=== PATIENT | female | born 1960 | race American Indian/Alaskan Native ===

== ENCOUNTER 2018-06-05 19:44 | Emergency (ER) | payer OTHER ==
[2018-06-05 20:01] VITALS: BP 140/80; PULSE 111; RESP 24; TEMP 98.6; O2SAT 100
[2018-06-05] MEDS ORDERED: Lidocaine 2% Inj (20ml) INFIL ONE (20:16)
[2018-06-05] MEDS ORDERED: Lidocaine 2% MPF (5 ml) Inj ONE (20:21)
[2018-06-05] MEDS ORDERED: Bacitracin 500 Units/gm Oint Foilpak UD ONE (20:22)
[2018-06-05] MEDS: Bacitracin 500 Units/gm Oint Foilpak UD TOP ONE (20:40)
--- NOTE | 2018-06-05 20:56 | C.PDOC ---
History Of Present Illness 57 year old female presents to the ED for an evaluation of left thumb laceration sustained this morning at 0900. Reports she accidentally cut finger with razor blade. Denies any other injuries, weakness, numbness or sensory changes. Patient is an RN at [employer]. Time Seen by Provider: 06/05/18 20:03 Chief Complaint (Nursing): Abnormal Skin Integrity History Per: Patient History/Exam Limitations: no limitations Onset/Duration Of Symptoms: Hrs Current Symptoms Are (Timing): Still Present Location Of Injury: Left: Hand (laceration to left thumb ) Quality Of Symptoms: Painful Past Medical History Reviewed: Historical Data, Nursing Documentation, Vital Signs Vital Signs: Last Vital Signs Temp 98.6 F 06/05/18 19:54 Pulse 111 H 06/05/18 19:54 Resp 24 06/05/18 19:54 BP 140/80 06/05/18 19:54 Pulse Ox 100 06/05/18 19:54 - Medical History PMH: HTN (ON MEDS CANNOT RECALL NAME) Other Surgeries: hx of surgeries Family History: States: No Known Family Hx - Social History Hx Alcohol Use: No Hx Substance Use: No - Immunization History Hx Tetanus Toxoid Vaccination: No Hx Influenza Vaccination: Yes Hx Pneumococcal Vaccination: No Review Of Systems Except As Marked, All Systems Reviewed And Found Negative. Skin: Positive for: Other (laceration to left thumb ) Neurological: Negative for: Weakness, Numbness Physical Exam - Physical Exam Appears: Non-toxic, No Acute Distress Skin: Warm, Dry, Other (2cm laceration to volar aspect of distal left thumb, no active bleeding) Head: Atraumatic ( ), Normacephalic Eye(s): bilateral: Normal Inspection Nose: Normal Oral Mucosa: Moist Neck: Supple Chest: Symmetrical Cardiovascular: Rhythm Regular, No Friction Rub, No Murmur Respiratory: Normal Breath Sounds, No Rales, No Rhonchi, No Wheezing Extremity: Normal ROM, Capillary Refill (less than 2 sec to left hand ), No Deformity, No Swelling Extremity: Bilateral: Normal Color And Temperature, Normal ROM Pulses: Left Radial: Normal, Right Radial: Normal Neurological/Psych: Oriented x3, Normal Speech, Normal Motor, Normal Sensation Gait: Steady ED Course And Treatment O2 Sat by Pulse Oximetry: 100 (RA) Pulse Ox Interpretation: Normal Procedure: Wound Repair - Time Performed Time Performed: 20:35 - Time Out Time Out: Side verified, Site verified - Consent Obtained Consent obtained: Verbal - Performed by Performed by: Mid-level Provider (Gary) - Location Finger:: Left, Thumb Shape:: Linear Dimensions Length cm: 2 - Anesthetic Technique Anesthetic Technique: Local, Regional block (Digital) Local/Regional Anesthetic:: Lidocaine 2% - Debris Debris:: None - Irrigated Irrigated with ml of normal saline: 500 - Complexity Complexity:: Simple (one layer) - Wound repair method Sutures:: # (Four), Size (4-0), Type (nylon), Technique (interrupted) - Patient tolerated procedure Patient Tolerated Procedure:: Well Medical Decision Making Medical Decision Making: Plan - Bacitracin - Lac repair Tetanus is up to date. Laceration repair done without difficulty. Patient tolerated procedure well. Patient instructed to keep wound dry and clean. Patient given follow up instructions. Instructed to return to ER if symptoms worsen or new symptoms arise. Disposition - Disposition Referrals: [facility] at [facility] [Outside] Disposition: HOME/ ROUTINE Disposition Time: 20:54 Condition: STABLE Additional Instructions: Keep the wound covered for 2 days. Starting on 06-08-18, wash the wound twice a day and apply bacitracin. Keep covered and do not get it wet Sutures to be removed within 7-10 days. return if worsened. Prescriptions: Bacitracin Ointment [Bacitracin] 30 gm TOP BID #1 tube Instructions: Laceration Repair Forms: [facility] (Welsh), Work Excuse - Clinical Impression Clinical Impression: Laceration of finger - PA / RESIDENTIAL INSTALLER / Resident Statement MD/DO has reviewed & agrees with the documentation as recorded. - Scribe Statement The provider has reviewed the documentation as recorded by the Scribkyle Hagan All medical record entries made by the Chrisibkyle were at my direction and personally dictated by me. I have reviewed the chart and agree that the record accurately reflects my personal performance of the history, physical exam, medical decision making, and the department course for this patient. I have also personally directed, reviewed, and agree with the discharge instructions and disposition.
== END 2018-06-05 21:08 | disposition home or self-care (01) ==
LOC: C.ER 19:44
DX: S61.012A Laceration without foreign body of left thumb without damage to nail, initial encounter (principal); W45.8XXA Other foreign body or object entering through skin, initial encounter